=== PATIENT | female | born 1985 | race Caucasian/White ===

== ENCOUNTER → 2017-12-31 12:39 | Outpatient (CLI) | payer OTHER, MEDICAID, SELFPAY ==
[2017-12-31 14:54] LABS: Free T4, Direct Thyroxine 1.35 ng/dL (0.78-2.19)
[2017-12-31 15:08] LABS: Thyroid Stimulating Hormone < 0.02 uIU/mL (0.47-4.68)
== END ==
PROVIDERS: PCP Family Medicine; Visit Provider Obstetrics & Gynecology
DX: E03.9 Hypothyroidism, unspecified (principal)
CPT/HCPCS: 36415; 84439; 84443

== ENCOUNTER → 2018-04-08 13:56 | Outpatient (CLI) | payer OTHER, MEDICAID, SELFPAY ==
[2018-04-08 15:38] LABS: Free T4, Direct Thyroxine 0.97 ng/dL (0.78-2.19)
[2018-04-08 15:52] LABS: Thyroid Stimulating Hormone 4.64 uIU/mL (0.47-4.68)
== END ==
PROVIDERS: PCP Obstetrics & Gynecology; Visit Provider Family Medicine
DX: E03.1 Congenital hypothyroidism without goiter (principal); E03.9 Hypothyroidism, unspecified
CPT/HCPCS: 36415; 84439; 84443

== ENCOUNTER → 2018-07-02 10:23 | Outpatient (CLI) | payer OTHER, MEDICAID, SELFPAY ==
[2018-07-02 12:25] LABS: Free T4, Direct Thyroxine 1.41 ng/dL (0.78-2.19)
[2018-07-02 12:39] LABS: Thyroid Stimulating Hormone < 0.02 uIU/mL (0.47-4.68)
== END ==
PROVIDERS: Family Medicine; PCP Obstetrics & Gynecology; Visit Provider Obstetrics & Gynecology
DX: E03.9 Hypothyroidism, unspecified (principal)
CPT/HCPCS: 36415; 84439; 84443

== ENCOUNTER → 2018-10-29 14:20 | Outpatient (CLI) | payer OTHER, MEDICAID, SELFPAY ==
[2018-10-29 16:35] LABS: Thyroid Stimulating Hormone 1.86 uIU/mL (0.47-4.68)
== END ==
PROVIDERS: PCP Obstetrics & Gynecology; Visit Provider Family Medicine
DX: E03.9 Hypothyroidism, unspecified (principal)
CPT/HCPCS: 84443

== ENCOUNTER → 2019-11-14 10:36 | Outpatient (CLI) | payer OTHER, MEDICAID, SELFPAY ==
[2019-11-14 12:19] LABS: TSH w/ Reflex to FT4 3.36 uIU/mL (0.47-4.68)
== END ==
PROVIDERS: PCP Obstetrics & Gynecology; Referring Provider Family Medicine; Visit Provider Family Medicine
DX: E03.9 Hypothyroidism, unspecified (principal)
CPT/HCPCS: 36415; 84443

== ENCOUNTER → 2020-10-26 10:22 | Outpatient (CLI) | payer OTHER, MEDICAID, SELFPAY ==
--- NOTE | 2020-10-26 10:23 | DI.US.S_ITS ---
PROCEDURE: US PELVIC COMPLETE INDICATIONS: CHECK IUD PLACEMENT TECHNIQUE: Real-time scanning was performed of the pelvic organs, with image documentation. Additional endovaginal scanning was necessary due to incomplete visualization of the adnexal and endometrial structures by transabdominal scanning. COMPARISON: None. FINDINGS: Uterus: The uterus measures 8.6 x 4.7 x 6.4 centimeters. The uterus is anteverted. Endometrial thickness is 2.8 millimeters. An IUD is seen in appears well position. No uterine fibroids. Ovaries: The right ovary measures 4.3 x 4.3 x 3.5 centimeters. The right ovary has a 3.8 x 3.9 x 2.9 centimeter septated cyst with no solid component. There is normal vascularity. The left ovary measures 2.5 x 1.7 x 1.7 centimeters. The uterus appears normal, however vascularity could not be assessed due to its posterior location. Other: No pathologic free abdominal or pelvic fluid. IMPRESSION: 1. IUD appears well positioned. 2. 3.8 x 3.9 x 2.9 centimeter cyst with a thin septation in the right ovary. 3. No acute abnormality of the pelvis. Dictated by: Tyron Beauchamp M.D. on 10/26/2020 at 12:54 Approved by: Tyron Beauchamp M.D. on 10/26/2020 at 12:58
== END ==
PROVIDERS: PCP Obstetrics & Gynecology; Referring Provider Obstetrics & Gynecology; Visit Provider Obstetrics & Gynecology
DX: T83.84XA Pain due to genitourinary prosthetic devices, implants and grafts, initial encounter (principal); N83.201 Unspecified ovarian cyst, right side
CPT/HCPCS: 76830; 76856

== ENCOUNTER → 2020-12-24 08:33 | Outpatient (CLI) | payer OTHER, MEDICAID, SELFPAY ==
[2020-12-24 10:27] LABS: Thyroid Stimulating Hormone 1.56 uIU/mL (0.47-4.68)
== END ==
PROVIDERS: PCP Family Medicine; Referring Provider Family Medicine; Visit Provider Family Medicine
DX: E03.9 Hypothyroidism, unspecified (principal)
CPT/HCPCS: 36415; 84443

== ENCOUNTER → 2022-04-17 10:22 | Outpatient (CLI) | payer OTHER, MEDICAID, SELFPAY ==
[2022-04-17 13:24] LABS: TSH w/ Reflex to FT4 3.63 uIU/mL (0.47-4.68)
== END ==
PROVIDERS: PCP Family Medicine; Referring Provider Family Medicine; Visit Provider Family Medicine
DX: E03.9 Hypothyroidism, unspecified (principal)
CPT/HCPCS: 36415; 84443

== ENCOUNTER → 2023-10-08 06:50 | Outpatient (CLI) | payer OTHER, MEDICAID, SELFPAY ==
--- NOTE | 2023-10-08 06:51 | DI.US.S_ITS ---
PROCEDURE: US PELVIC COMPLETE INDICATIONS: Missing IUD strings TECHNIQUE: Real-time scanning was performed of the pelvic organs, with image documentation. Additional endovaginal scanning was necessary due to incomplete visualization of the adnexal and endometrial structures by transabdominal scanning. COMPARISON: [facility], , US PELVIC COMPLETE, 10/26/2020, 10:36. FINDINGS: Uterus: 10.7 x 5.4 x 7.3 cm. Endometrium measures 5 mm. IUD is seen within the endometrium Ovaries: left ovary is not seen. Right ovary is nonenlarged. A 1.8 cm follicle is present. Other: No pathologic free fluid. IMPRESSION: Appropriate positioning of the IUD within the endometrium. Dictated by: Dilan Joshi M.D. on 10/08/2023 at 10:54 Approved by: Dilan Joshi M.D. on 10/08/2023 at 10:58
== END ==
LOC: US 06:51
PROVIDERS: PCP Family Medicine; Referring Provider Obstetrics & Gynecology; Visit Provider Obstetrics & Gynecology
DX: T83.32XA Displacement of intrauterine contraceptive device, initial encounter (principal)
CPT/HCPCS: 76830; 76856

== ENCOUNTER → 2023-10-15 09:46 | Outpatient (CLI) | payer OTHER, MEDICAID, SELFPAY ==
[2023-10-15 10:45] LABS: BUN Creatinine Ratio 17.5 (6-22); Blood Urea Nitrogen 11 mg/dL (7-17); Calcium 9.7 mg/dL (8.4-10.2); Carbon Dioxide 26 mmol/L (22-32); Chloride 105 mmol/L (98-107); Estimated Glomerular Filt Rate > 60 mL/min (>60); Glucose 96 mg/dL (70-100); HEMOLYSIS < 15 (0-50); Potassium 4.5 mmol/L (3.4-5.1); Sodium 139 mmol/L (137-145)
[2023-10-15 11:16] LABS: Thyroid Stimulating Hormone 0.514 uIU/mL (0.47-4.68)
== END ==
PROVIDERS: PCP Family Medicine; Referring Provider Family Medicine; Visit Provider Family Medicine
DX: E03.9 Hypothyroidism, unspecified (principal)
CPT/HCPCS: 36415; 80048; 84443

== ENCOUNTER 2023-11-06 08:10 | Day surgery (SDC) | payer OTHER, MEDICAID, SELFPAY ==
[2023-10-28 10:57] VITALS: BMI 30.4
[2023-11-06 08:24] VITALS: BP 143/100; PULSE 93; RESP 16; TEMP 36.7; O2SAT 100; BMI 30.4
--- NOTE | 2023-11-06 08:32 | SUR.OPER ---
Lithotomy on padded OR bed, head on pillow, arms secured on padded arm boards at <90 degrees abduction. Legs secured in padded yellow fins stirrups.
[2023-11-06] MEDS: LACTATED RINGERS 1,000 ML 42 ML IV (08:35)
--- NOTE | 2023-11-06 08:53 | PM.GYNHP.1 ---
History of Present Illness History of Present Illness Reason for admission: other Narrative: Emily presented in September 2023 for removal of her Mirena IUD which was placed in 2017. She was planning to have another Mirena placed upon removal of the old Mirena. She has not having any issues with the Mirena and her insertion was without significant discomfort. She has however never been able to feel the IUD strings. Pelvic ultrasound performed in 2020 showed correct placement of the Mirena IUD. Attempts to locate the IUD strings and remove the IUD by her primary care provider were unsuccessful. Similarly, numerous attempts by me failed to locate the IUD strings or remove the IUD. Subsequent pelvic imaging confirmed the intrauterine device in correct location within the endometrial cavity. After discussion regarding options for IUD removal and replacement she is admitted now for hysteroscopy with IUD removal and replacement of her Mirena IUD in the OR.. [facility] Medical History (Updated 09/29/23 @ 13:03 by Florencio Vega MD) Chicken pox (1995) Hypothyroidism (1999) Surgical History (Updated 04/14/18 @ 16:56 by Tessa Bates) Anesthesia Family History (Updated 12/31/14 @ 00:00 by Conversion Provider) Father Age: 82 Skin cancer Mother Age: 74 Diabetes mellitus Heart disease Social History marital status: Smoking Status: Never smoker alcohol intake: current substance use type: does not use Meds Home Medications and Allergies Home Medications Medication Instructions Recorded Confirmed Type levonorgestrel 21 mcg/24 hours (8 intrauterine 12/25/20 09/29/23 History yrs) 52 mg intrauterine device (Mirena) levothyroxine 150 mcg tablet 150 mcg PO DAILY #90 tabs 08/13/23 09/29/23 Rx metronidazole 1 % topical gel with 1 applic topical DAILY #55 grams 08/13/23 09/29/23 Rx pump Allergies Allergy/AdvReac Type Severity Reaction Status Date / Time No Known Drug Allergies Allergy Verified 11/06/23 08:38 Review of Systems Review of Systems Narrative: Problem-specific ROS positives included in HPI Exam Vital Signs (past 8 hours): - 11/06/23 08:24 Temperature 98.1 F Pulse Rate 93 H Respiratory Rate 16 Blood Pressure 143/100 H Pulse Oximetry 100 Oxygen Delivery Method Room Air Oxygen Delivery Method Room Air Const General: cooperative and comfortable Nutritional Appearance: average body habitus Orientation: alert and oriented x3 HENMT Head: normal to inspection, atraumatic and abrasion Ears: hearing grossly normal bilaterally Face and sinus: face symmetric Eyes General: appearance normal, both eyes and all related structures Conjunctivae: conjunctivae normal Sclera: sclerae normal EOM: EOM intact bilaterally Neck Neck: normal visual inspection Resp Effort & Inspection: normal respiratory effort and able to speak in complete sentences Auscultation: clear to auscultation bilaterally Cardio Rate: regular rate Rhythm: regular rhythm Heart Sounds: S1 normal, S2 normal and no murmurs GI Inspection: normal to inspection Palpation: soft and no hepatosplenomegaly External Female Exam: other (No significant bleeding noted) Extrem General: no calf tenderness Psych Appearance: grossly normal Mental Status: mental status grossly normal Speech and Movement: speech and movement normal Mood: congruent mood Affect: normal affect Attitude: cooperative Thought Process: normal Thought Content: normal Judgment: judgment good Assessment & Plan Assessment and plan (1) IUD strings lost: Qualifiers: Encounter type: subsequent encounter Qualified Code(s): T83.32XD - Displacement of intrauterine contraceptive device, subsequent encounter Status: Acute Plan Patient counseled regarding alternatives, risks, benefits, and potential complications associated with hysteroscopy IUD removal and replacement. With full understanding of the above, a written consent was executed, signed, and witnessed this. Time Spent With Patient Time with patient: less than 30 minutes
--- NOTE | 2023-11-06 09:48 | P.OP_ITS ---
Operative Date/Time/Diagnoses Date of procedure: 11/06/23 Time of procedure: 09:10 Pre-op diagnosis: Missing IUD strings with retained IUD Encounter for IUD replacement Post-op diagnosis: same Procedure & Clinicians Procedure: Procedures Operation Date: 11/06/23 09:45 Actual Procedure Side Surgeon p Hysteroscopy with IUD Removal & Insertion of Mirena IUD Florencio Vega MD Indications: Emily presented in September 2023 for removal of her Mirena IUD which was placed in 2017. She was planning to have another Mirena placed upon removal of the old Mirena. She has not having any issues with the Mirena and her insertion was without significant discomfort. She has however never been able to feel the IUD strings. Pelvic ultrasound performed in 2020 showed correct placement of the Mirena IUD. Attempts to locate the IUD strings and remove the IUD by her primary care provider were unsuccessful. Similarly, numerous attempts by me failed to locate the IUD strings or remove the IUD. Subsequent pelvic imaging confirmed the intrauterine device in correct location within the endometrial cavity. After discussion regarding options for IUD removal and replacement she is admitted now for hysteroscopy with IUD removal and replacement of her Mirena IUD in the OR.. Surgeon: Florencio Vega Anesthesia Type: General Operative Notes Findings: Intact Mirena IUD w/ very short IUD strings. Normal endometrial cavity. Closure Type: not applicable Specimen(s): none Estimated blood loss (mL): 0 Blood products transfused: none Procedure in detail: With the patient under satisfactory general anesthesia in the modified dorsal lithotomy position, the vagina, perineum, and lower abdomen prepped and draped in the usual manner for hysteroscopy. A pre-surgical safety time-out was then taken in accordance with [facility] OR protocols. A bivalve speculum was inserted in the vagina and the cervix easily visualized. The anterior lip of the cervix was grasped with a single-tooth tenaculum and the endocervical canal was sequentially dilated with Hegar dilators. Once sufficiently dilated, the MyoSure hysteroscope was inserted through the endocervical canal into the endometrial cavity. The IUD was position transversely in the endometrial cavity and using a flexible grasper introduced through the MyoSure operating channel, IUD was removed without significant difficulty resistance. IUD was inspected and found to be intact with very short IUD strings noted. New Mirena IUD was then introduced through endocervical canal into the endometrial cavity using Mirena insertion device. The IUD was then released in the uppermost portion of the endometrial cavity usual manner and the insertion device removed. The strings were trimmed to 3 cm and the tenaculum removed from the anterior lip of the cervix. No significant bleeding was noted and the procedure was terminated by removal of the speculum from the vagina. Patient was then awakened and transferred to the PACU for a period of observation and recovery having sage rated the procedure well. Complications: none Post-operative Condition: stable Disposition: PACU Plan for aftercare: Routine postoperative care with follow-up by phone in 2 weeks.
[2023-11-06 09:50] VITALS: BP 86/53; PULSE 75; RESP 12; TEMP 36.8; O2SAT 96
[2023-11-06 09:55] VITALS: BP 88/53; PULSE 72; RESP 12; O2SAT 95
[2023-11-06 10:00] VITALS: BP 94/58; PULSE 71; RESP 12; O2SAT 96
== END 2023-11-06 10:15 | disposition home or self-care (01) ==
PROVIDERS: PCP Family Medicine; Referring Provider Obstetrics & Gynecology; Visit Provider Obstetrics & Gynecology
PROC: 0UDB8ZZ Extraction of Endometrium, Via Natural or Artificial Opening Endoscopic (ICD-10-PCS; CPT 58558; principal; 2023-11-06 09:45)
DX: T83.32XA Displacement of intrauterine contraceptive device, initial encounter (principal); Z30.433 Encounter for removal and reinsertion of intrauterine contraceptive device
CPT/HCPCS: 58300; 58301; 81025; C1776; J1885; J2405; J2704; J3010; J7298

== ENCOUNTER → 2024-10-21 09:16 | Outpatient (CLI) | payer OTHER, SELFPAY ==
[2024-10-21 10:42] LABS: Alanine Aminotransferase 22 IU/L (<35); Albumin 5.2 g/dL (3.5-5.0); Albumin Globulin Ratio 1.9 (1.0-2.8); Alkaline Phosphatase 48 U/L (38-126); Aspartate Aminotransferase 36 IU/L (14-36); BUN Creatinine Ratio 8.2 (6-22); Bilirubin Total 0.7 mg/dL (0.2-1.3); Blood Urea Nitrogen 6 mg/dL (7-17); Carbon Dioxide 25 mmol/L (22-32); Chloride 102 mmol/L (98-107); Cholesterol 254 mg/dL (140-199); Estimated Glomerular Filt Rate > 60 mL/min (>60); Globulin 2.8 g/dL (1.7-4.1); Glucose 81 mg/dL (70-100); HEMOLYSIS < 15 (0-50); Potassium 5.2 mmol/L (3.4-5.1); Sodium 139 mmol/L (137-145); Triglycerides 67 mg/dL (35-150)
[2024-10-21 10:53] LABS: HDL Cholesterol 158 mg/dL (40-60); LDL Cholesterol Calculated 83 mg/dL (<100)
[2024-10-21 11:09] LABS: TSH w/ Reflex to FT4 3.24 uIU/mL (0.47-4.68)
== END ==
PROVIDERS: PCP Family Medicine; Referring Provider Family Medicine; Visit Provider Family Medicine
DX: E03.9 Hypothyroidism, unspecified (principal)
CPT/HCPCS: 36415; 80053; 80061; 84443

== ENCOUNTER 2024-12-09 08:45 | Emergency (ER) | payer OTHER, SELFPAY ==
[2024-12-09] VITALS (11 sets, daily range): BP systolic 131–191; BP diastolic 78–102; PULSE 84–111; RESP 17–32; TEMP 36.8; O2SAT 96–100; BMI 27.3
--- NOTE | 2024-12-09 08:56 | EKG_ITS ---
[id number] [address] Test Date: 2024-12-09 Pat Name: Emily Gleason Department: Room: Gender: Female Biomedical Engineering Technologist: ANDRE : 1985 Requested By: Order Number: [id number] Reading MD: Danny Alexanedr MD Measurements Intervals [place] Rate: 108 P: 62 AL: 170 QRS: 54 QRSD: 92 T: -5 QT: 344 QTc: 460 Interpretive Statements Sinus tachycardia Possible Left atrial enlargement Nonspecific ST abnormality NO PRIOR TRACING Electronically Signed On 12-09-2024 10:05:30 PDT by Danny Alexander MD
--- NOTE | 2024-12-09 08:59 | ED.ABDPAIN ---
HPI - Abdominal Pain General Chief Complaint: Dizziness Stated Complaint: Dizzy , High blood pressure Time Seen by Provider: 12/09/24 08:52 History of Present Illness HPI narrative: Patient is a 39-year-old female history of pretty severe Raynaud's disease hypothyroid presenting to day with variety of symptoms. She was started on amlodipine 3 days ago and started having a little bit of a rash on her face that comes and goes and some abdominal pain nausea but no vomiting. She denies any tongue swelling difficulty breathing. She was noted to be shaky she was not sure why that is. She does admit to drinking a 12 pack of beer daily last drink was 7:00 p.m. last night. She also reports that they can not find her IUD she has to see OBGYN. She was previously been seen for this in the past. Records from protozoologist 11/06/2023 showed the same Related Data Home Medications Medication Instructions Recorded Confirmed levonorgestrel 21 mcg/24 hr (up to intrauterine 11/02/24 11/02/24 8 years) 52 mg intrauterine device (Mirena) Previous Rx's Medication Instructions Recorded metronidazole 1 % topical gel with 1 applic topical DAILY #55 grams 08/13/23 pump amlodipine 5 mg tablet (Norvasc) 5 mg PO DAILY #90 tabs 11/03/24 levothyroxine 150 mcg tablet 150 mcg PO DAILY #90 tabs 11/07/24 prednisone 20 mg tablet 40 mg (2 x 20 mg) PO DAILY #10 tabs 12/09/24 Allergies Allergy/AdvReac Type Severity Reaction Status Date / Time No Known Drug Allergies Allergy Verified 12/09/24 09:09 Patient History Medical History Chicken pox (1995) Hypothyroidism (1999) Surgical History Anesthesia Family History Father Age: 83 Skin cancer Mother Age: 75 Diabetes mellitus Heart disease Social History marital status: Smoking Status: Never smoker alcohol intake: current substance use type: does not use alcohol intake frequency: a few times a week Exam Initial Vital Signs Initial Vital Signs: Vital Signs Pulse Rate 111 H 05/09/25 08:51 Blood Pressure 185/102 H 12/09/24 08:51 Pulse Oximetry 100 12/09/24 08:51 GENERAL: Alert 39-year-old female and in no acute distress. HEENT: Head atraumatic,EOMI, pupils reactive, face symmetric, moist mucous membranes CARDIOVASCULAR: Regular rate and rhythm without murmurs, rubs or gallops. RESPIRATORY: Breath sounds equal bilaterally, no wheezes rales or rhonchi. ABDOMEN: Soft, nontender. Normoactive bowel sounds all 4 quadrants. No guarding or rebound. EXTREMITIES: Normal range of motion, no clubbing or edema. Neurovascularly intact NEUROLOGICAL: Alert and oriented x4.Normal gait and speech. Cranial nerves II through XII grossly intact. Resting tremor noted SKIN: Erythematous blanchable rash on face and neck no significant urticaria or hives on extremities or torso. Course Orders Ordered: ED Orders 12/09/24 08:55 CBC Auto Diff [Complete Blood Count AUTO DIFF] Stat CMP [Comprehensive Metabolic Panel] Stat ETOH [Ethanol (ETOH)] Stat Lipase Stat Troponin & CK Cardiac Panel Stat 12/09/24 09:01 EKG-12 Lead Stat 12/09/24 09:42 US pelvic complete Stat Discontinued Medications Diphenhydramine HCl (Diphenhydramine 50 Mg/Ml Vial) 25 mg IV NOW ONE Stop: 12/09/24 09:02 Last Admin: 12/09/24 09:19 Dose: 25 mg Documented By: RB Famotidine (Famotidine 20 Mg/2 Ml Vial) 20 mg IV NOW JONATHAN Last Admin: 12/09/24 09:19 Dose: 20 mg Documented By: RB Methylprednisolone (Methylprednisolone 125 Mg/2 Ml Vial) 125 mg IV NOW ONE Stop: 12/09/24 09:02 Last Admin: 12/09/24 09:19 Dose: 125 mg Documented By: RB Phenobarbital (Phenobarbital 65 Mg/Ml Vial) 130 mg IV NOW ONE Stop: 12/09/24 10:07 Last Admin: 12/09/24 10:36 Dose: 130 mg Documented By: RB Vital Signs Vital signs: Vital Signs - 8 hr 12/09/24 08:51 12/09/24 08:51 12/09/24 09:00 Temperature Pulse Rate 111 H Respiratory Rate Blood Pressure 185/102 H 191/102 H Pulse Oximetry 100 Oxygen Delivery Method 12/09/24 09:00 12/09/24 09:02 12/09/24 09:30 Temperature 98.2 F Pulse Rate 101 H 90 94 H Respiratory Rate 26 H 18 24 Blood Pressure 191/102 H Pulse Oximetry 100 99 100 Oxygen Delivery Method Room Air 12/09/24 09:30 12/09/24 10:00 12/09/24 10:00 Temperature Pulse Rate 84 Respiratory Rate 19 Blood Pressure 170/85 H 131/78 Pulse Oximetry 98 Oxygen Delivery Method 12/09/24 10:30 12/09/24 10:30 12/09/24 11:08 Temperature Pulse Rate 84 86 Respiratory Rate 18 17 Blood Pressure 133/79 Pulse Oximetry 98 99 Oxygen Delivery Method 12/09/24 11:08 12/09/24 11:32 12/09/24 11:33 Temperature Pulse Rate 101 H Respiratory Rate 32 H Blood Pressure 147/88 H 162/99 H Pulse Oximetry 100 Oxygen Delivery Method 12/09/24 11:33 12/09/24 12:00 12/09/24 12:30 Temperature Pulse Rate 94 H 92 H 95 H Respiratory Rate 20 20 21 Blood Pressure Pulse Oximetry 100 97 96 Oxygen Delivery Method MDM - Abdominal Pain Lab Data 12/09/24 08:55 12/09/24 08:55 Labs: Lab Results 12/09/24 Range/Units 08:55 WBC 10.0 (4.5-11.0) X10^3/uL RBC 4.49 (4.0-5.2) X10^6/uL Hgb 15.2 (12.0-16.0) g/dL Hct 44.9 (36-46) % MCV 99.9 (80-100) fL MCH 33.9 (26-34) PG MCHC 34.0 (30-36) % RDW 13.5 (11.6-14.8) % Plt Count 290 (150-400) X10^3/uL Neut % (Auto) 52.1 (50-75) % Lymph % (Auto) 35.0 (25-40) % [place] % (Auto) 8.8 (3-14) % Eos % (Auto) 2.8 (2-4) % Baso % (Auto) 1.3 (0-2) % Neut # (Auto) 5200 (2236-4518) /uL Lymph # (Auto) 3500 (9923-7822) /uL [place] # (Auto) 900 (0-900) /uL Eos # (Auto) 300 (0-450) /uL Baso # (Auto) 100 (0-100) /uL Sodium 138 (137-145) mmol/L Potassium 3.3 L (3.4-5.1) mmol/L Chloride 104 (98-107) mmol/L Carbon Dioxide 16 L (22-32) mmol/L BUN 9 (7-17) mg/dL Creatinine 0.71 (0.52-1.04) mg/dL Estimated GFR > 60 (>60) mL/min BUN/Creatinine Ratio 12.7 (6-22) Glucose 112 H (70-99) mg/dL Calcium 9.6 (8.4-10.2) mg/dL Total Bilirubin 0.9 (0.2-1.3) mg/dL AST 52 H (14-36) IU/L ALT 32 (<35) IU/L Alkaline Phosphatase 53 (38-126) U/L Total Creatine Kinase 84 (30-135) U/L Troponin I < 0.012 (0.01-0.034) ng/mL Total Protein 8.8 H (6.3-8.2) g/dL Albumin 5.4 H (3.5-5.0) g/dL Globulin 3.4 (1.7-4.1) g/dL Albumin/Globulin Ratio 1.6 (1.0-2.8) Lipase 43 (23-300) U/L Ethyl Alcohol 24 H ( - 10) mg/dL Point of care testing: Point of Care Testing Test Results Negative Urine Dip Bedside Urine Glucose Negative Bedside Urine Bilirubin - Negative Bedside Urine Ketone - Negative Urine Specific [place] 1.005 Bedside Urine Occult Blood - Negative Bedside Urine pH 6.0 Bedside Urine Protein - Negative Bedside Urine Urobilinogen - Negative Bedside Urine Nitrite - Negative Bedside Urine Leukocytes - Negative Esterase Imaging Data US - SENIOR INTERACTIVE DEVELOPER: Radiologist's Impression: PROCEDURE: US PELVIC COMPLETE INDICATIONS: IUD placement TECHNIQUE: Real-time scanning was performed of the pelvic organs, with image documentation. Additional endovaginal scanning was necessary due to incomplete visualization of the adnexal and endometrial structures by transabdominal scanning. COMPARISON: [facility], US, US PELVIC COMPLETE, 10/08/2023, 6:56. FINDINGS: Uterus: Uterus is anteverted and normal in size at 7.8 x 6.2 x 4.9 cm. The myometrium is homogeneous. The endometrium measures 3.7 mm combined thickness. IUD is present in appropriate location. Ovaries: The right ovary measures 3.9 x 4.0 x 3.1 cm, with a calculated ovarian volume of 24.9 cc. The left ovary measures 2.1 x 3.0 x 0.7 cm, with a calculated ovarian volume of 2.3 cc. Complex focus of heterogeneous echogenicity within the right ovary measuring 3.1 cm. Other: No pathologic free abdominal or pelvic fluid. IMPRESSION: Suspected right ovarian hemorrhagic cyst. We strive to produce accurate, complete, and clear reports of imaging services. To assist us in improving patient care, this report was composed using standard report templates and voice recognition software. Therefore, it may contain abnormal punctuation, insertions and/or omissions. Occasional wrong-word or sound-alike substitutions may occur. Though we review the report and make efforts to correct it, we do recommend that the report be read carefully in proper context to recognize any text inaccuracies. Dictated by: Samira Yang M.D. on 12/09/2024 at 12:17 ECG Data Attestation: I personally reviewed and interpreted this ECG as follows: Prior ECG tracings: not available for review Interpretation: Sinus rhythm rate 108 ID interval 170 QRS [address] changes no T-wave inversions MDM Narrative Medical decision making narrative: Patient is a 39-year-old female recently started on amlodipine presenting today with rash abdominal pain and nausea. She was visibly shaking. Is concern for possible alcohol withdrawal although her alcohol level is 24. Other blood work reviewed no leukocytosis no anemia CMP mild hypokalemia potassium 3.3 bicarb 16 BUN 9 creatinine 0.7 Glucose 112 Bilirubin 0.9 AST 52 ALT 32 lipase negative Troponin negative Urinalysis negative for and UTI Ultrasound reviewed IUD in place On exam patient's abdomen is soft nontender no distention. She has some erythema on her face and chest. However after Solu-Medrol and Benadryl the rash has improved. No evidence of angioedema She is noted to have some mild tremors CIWA 14 given phenobarbital At this time she reports feeling better. Discussion with her about alcohol use. She does not report drinking alcohol daily. Recommended detox center for her if she was choosing to stop drinking. At this time I do think she had a medication reaction to amlodipine causing some rash and maybe abdominal pain. Abdomen again is nontender IUD as identified on the ultrasound. At this time no need for any further workup. Recommend she stop taking the amlodipine no put her on prednisone. Discharge Plan Departure Patient Disposition: Home Clinical Impression: Adverse drug reaction Instructions: DI for Adverse Drug Reaction -- Allergic Activity Restrictions/Additional Instructions: *You have been diagnosed with adverse drug reaction *What to do: At this time I would stop taking amlodipine see if it improves your symptoms If you choose to stop drinking alcohol please do so at detox center *Continue to take medications as directed Prednisone 40 mg once a day for 3 days [id number] allergy medicine Anastasiia Claritin, cetirizine *Follow up with your primary care provider in 2-3 days or call [phone] Follow up with protozoologist in regards to your IUD removal *Return to ER if you should have increased abdominal pain nausea vomiting [or] any new, worsening or concerning symptoms Prescriptions: New prednisone 20 mg tablet 40 mg PO DAILY Qty: 10 0RF No Action levothyroxine 150 mcg tablet 150 mcg PO DAILY Qty: 90 3RF metronidazole 1 % gel with pump 1 applic topical DAILY Qty: 55 3RF Mirena 21 mcg/24hr (up to 8 yrs) 52 mg intrauterine device Intrauterine Rx Instructions: 11/06/23, due out 2031 amlodipine [Norvasc] 5 mg tablet 5 mg PO DAILY Qty: 90 3RF Referrals: Tim Caban MD [Primary Care Provider] - Stand Alone Forms: Patient Portal/API/Survey
[2024-12-09 09:06] LABS: Add Manual Diff / Slide Review NO; Basophils Absolute Auto 100 /uL (0-100); Basophils Percent Auto 1.3 % (0-2); Eosinophils Absolute Auto 300 /uL (0-450); Eosinophils Percent Auto 2.8 % (2-4); Hematocrit 44.9 % (36-46); Hemoglobin 15.2 g/dL (12.0-16.0); Lymphocytes Absolute Auto 3500 /uL (1100-4500); Mean Corpuscular Hemoglobin 33.9 PG (26-34); Mean Corpuscular Volume 99.9 fL (80-100); Monocytes Absolute Auto 900 /uL (0-900); Monocytes Percent Auto 8.8 % (3-14); Neutrophils Absolute Auto 5200 /uL (1500-7000); Neutrophils Percent Auto 52.1 % (50-75); Platelet Count 290 X10^3/uL (150-400); Red Blood Cell Count 4.49 X10^6/uL (4.0-5.2); Red Cell Distribution Width 13.5 % (11.6-14.8)
[2024-12-09] MEDS: diphenhydrAMINE 50 MG/ML VIAL 25 MG IV (09:19)
[2024-12-09] MEDS: methylPREDNISolone 125 MG/2 ML VIAL IV (09:19)
[2024-12-09] MEDS: FAMOTIDINE 20 MG/2 ML VIAL IV (09:19)
[2024-12-09 09:31] LABS: Alanine Aminotransferase 32 IU/L (<35); Albumin 5.4 g/dL (3.5-5.0); Albumin Globulin Ratio 1.6 (1.0-2.8); Alkaline Phosphatase 53 U/L (38-126); Aspartate Aminotransferase 52 IU/L (14-36); BUN Creatinine Ratio 12.7 (6-22); Bilirubin Total 0.9 mg/dL (0.2-1.3); Blood Urea Nitrogen 9 mg/dL (7-17); Calcium 9.6 mg/dL (8.4-10.2); Carbon Dioxide 16 mmol/L (22-32); Chloride 104 mmol/L (98-107); Creatine Kinase 84 U/L (30-135); Estimated Glomerular Filt Rate > 60 mL/min (>60); Ethanol (ETOH) 24 mg/dL; Globulin 3.4 g/dL (1.7-4.1); Glucose 112 mg/dL (70-99); HEMOLYSIS 23 (0-50); Lipase 43 U/L (23-300); Potassium 3.3 mmol/L (3.4-5.1); Sodium 138 mmol/L (137-145); Total Protein 8.8 g/dL (6.3-8.2)
[2024-12-09 09:42] LABS: Troponin I < 0.012 ng/mL (0.01-0.034)
--- NOTE | 2024-12-09 09:42 | DI.US.S_ITS ---
PROCEDURE: US PELVIC COMPLETE INDICATIONS: IUD placement TECHNIQUE: Real-time scanning was performed of the pelvic organs, with image documentation. Additional endovaginal scanning was necessary due to incomplete visualization of the adnexal and endometrial structures by transabdominal scanning. COMPARISON: [facility], , US PELVIC COMPLETE, 10/08/2023, 6:56. FINDINGS: Uterus: Uterus is anteverted and normal in size at 7.8 x 6.2 x 4.9 cm. The myometrium is homogeneous. The endometrium measures 3.7 mm combined thickness. IUD is present in appropriate location. Ovaries: The right ovary measures 3.9 x 4.0 x 3.1 cm, with a calculated ovarian volume of 24.9 cc. The left ovary measures 2.1 x 3.0 x 0.7 cm, with a calculated ovarian volume of 2.3 cc. Complex focus of heterogeneous echogenicity within the right ovary measuring 3.1 cm. Other: No pathologic free abdominal or pelvic fluid. IMPRESSION: Suspected right ovarian hemorrhagic cyst. We strive to produce accurate, complete, and clear reports of imaging services. To assist us in improving patient care, this report was composed using standard report templates and voice recognition software. Therefore, it may contain abnormal punctuation, insertions and/or omissions. Occasional wrong-word or sound-alike substitutions may occur. Though we review the report and make efforts to correct it, we do recommend that the report be read carefully in proper context to recognize any text inaccuracies. Dictated by: Samira Yang M.D. on 12/09/2024 at 12:17 Approved by: Samira Yang M.D. on 12/09/2024 at 12:18
[2024-12-09] MEDS: PHENobarbital 65 MG/ML VIAL 130 MG IV (10:36)
== END 2024-12-09 12:40 | disposition home or self-care (01) ==
PROVIDERS: Emergency Provider Emergency Medicine; PCP Family Medicine
DX: R10.9 Unspecified abdominal pain (principal); R11.0 Nausea; R21 Rash and other nonspecific skin eruption; I10 Essential (primary) hypertension; R25.1 Tremor, unspecified; T46.1X5A Adverse effect of calcium-channel blockers, initial encounter
CPT/HCPCS: 36415; 76830; 76856; 80053; 80320; 81003; 81025; 82550; 83690; 84484; 85025; 93005; 93010; 96374; 96375; 99284; J1200; J2560; J2919